=== PATIENT | female | born 1960 | race Caucasian/White ===

== ENCOUNTER → 2019-02-13 08:34 | Outpatient (CLI) | payer OTHER, SELFPAY ==
[2019-02-17 20:23] LABS: HPV HC, High Risk Negative (Negative)
== END ==
PROVIDERS: Family Provider Family Medicine; PCP Family Medicine; Visit Provider Family Medicine
DX: Z01.419 Encounter for gynecological examination (general) (routine) without abnormal findings (principal); E11.9 Type 2 diabetes mellitus without complications; E03.9 Hypothyroidism, unspecified; E78.5 Hyperlipidemia, unspecified; E11.29 Type 2 diabetes mellitus with other diabetic kidney complication; R80.9 Proteinuria, unspecified; Z12.4 Encounter for screening for malignant neoplasm of cervix
CPT/HCPCS: 36415; 87624; 88175; G0145

== ENCOUNTER → 2022-03-08 | Outpatient (CLI) | payer OTHER, SELFPAY ==
[2022-03-15 13:07] LABS: Age Gdln ACOG Testing 30-65 (.)
[2022-03-16 14:56] LABS: HPV APTIMA, High Risk Negative (Negative); HPV Reflexed? YES, CHARGE PATIENT
== END | disposition home or self-care (01) ==
LOC: LABSPEC 09:41
PROVIDERS: PCP Family Medicine; Visit Provider Family Medicine
DX: Z12.4 Encounter for screening for malignant neoplasm of cervix (principal)
CPT/HCPCS: 87624; 88175; G0145

== ENCOUNTER → 2025-03-23 | Outpatient (CLI) | payer BC, SELFPAY ==
--- OUTSIDE RECORDS SUMMARY | 2025-03-23 18:48 | XMS RPT_ITS | CCD ---
Author Organization [facility] Care Team Providers Care Roustabout Crew Pusher Name Role Phone Daphne, Aster L Unavailable Unavailable Daphne, Aster L Unavailable Unavailable Daphne, Aster L Unavailable Unavailable Daphne, Aster L Unavailable Unavailable Daphne, Aster L Unavailable Unavailable Daphne, Aster L Unavailable Unavailable Daphne, Aster L Unavailable Unavailable Ayesha Thomas Attending Unavailable Ayesha Thomas Primary Care Unavailable Martha, Dr. Ayesha Casas Primary Care Tran Thomas, Dr. Ayesha Casas Attending Tran Thomas, Dr. Ayesha Casas Referring Ayesha Lopez MD Primary Care Provider Ayesha Thomas MD Unavailable [phone] AYESHA THOMAS Referring AYESHA Falcon Primary Care SHERI Snowden Attending Unavailable SHERI IRVING Referring Unavailable AYESHA THOMAS Primary Care SHERI Snowden Attending Unavailable AYESHA THOMAS Primary Care Ayesha Falcon MD Unavailable Allergies Allergy Classification Reported Allergen(s) Allergy Type Date of Onset Reaction(s) Facility (1 source) No Known Allergies; Translations: [No Known Allergies] Propensity to adverse reactions to drug (disorder) [facility] Repository (1 source) No Known Medication Allergies; Translations: [No Known Medication Allergies] Propensity to adverse reactions to drug (disorder) [facility] Repository Medications Current Medications Medication Drug Class(es) Dates Sig (Normalized) Sig (Original) levothyroxine sodium 0.112 mg oral tablet (3 sources) l-Thyroxine take 1 tablet by mouth once daily levothyroxine (Synthroid, Levoxyl) 112 mcg tablet Take 1 tablet (112 mcg) by mouth once daily. Active lisinopril 5 mg oral tablet (3 sources) Angiotensin Converting Enzyme Inhibitor take 1 tablet by mouth once daily lisinopril 5 mg tablet Take 1 tablet (5 mg) by mouth once daily. Active 24 hr metFORMIN hydrochloride 500 mg extended release oral tablet (3 sources) Biguanide Start: 03-30-2024 take 1 tablet by mouth every twenty-four hours in the morning metFORMIN XR 500 mg 24 hr tablet Take 1 tablet (500 mg) by mouth early in the morning.. 03/30/2024 Active omega-3 fatty acids-fish oil (Fish OiL) 340-1,000 mg capsule (3 sources) take 3-340 capsules by mouth once daily omega-3 fatty acids-fish oil (Fish OiL) 340-1,000 mg capsule Take 1,000 capsules by mouth once daily. Active omeprazole 20 mg delayed release oral capsule (3 sources) Proton Pump Inhibitor Start: 04-11-2024 take 2 capsules by mouth once daily before mealtime omeprazole (PriLOSEC) [address] capsule Take 2 capsules (40 mg) by mouth once daily in the morning. Take before meals. 04/11/2024 Active sertraline 25 mg oral tablet (3 sources) Serotonin Reuptake Inhibitor take 1 tablet by mouth once daily sertraline (Zoloft) 25 mg tablet Take 1 tablet (25 mg) by mouth once daily. Active simvastatin 20 mg oral tablet (3 sources) HMG-CoA Reductase Inhibitor take 1 tablet by mouth once daily simvastatin (Zocor) 20 mg tablet Take 1 tablet (20 mg) by mouth once daily. Active Completed/Discontinued Medications Medication Drug Class(es) Dates Sig (Normalized) Sig (Original) glucagon (rdna) 1 mg injection (2 sources) Antihypoglycemic Agent Start: 05-21-2024 End: 05-21-2024 As needed, Starting on Sat05/21/24 at 0755, Intraprocedure Problems Problem Classification Problem Date Documented Date Episodic/Chronic Diabetes mellitus without complication (2 sources) Type 2 diabetes mellitus; Translations: [Type 2 diabetes mellitus without complications] Onset: 05-21-2024 05-21-2024 Chronic Esophageal disorders (2 sources) Gastroesophageal reflux disease; Translations: [Gastro-esophageal reflux disease without esophagitis] Onset: 05-21-2024 05-21-2024 Chronic Other nutritional; endocrine; and metabolic disorders (2 sources) Obesity; Translations: [Obesity, unspecified] Onset: 05-21-2024 05-21-2024 Chronic Other screening for suspected conditions (not mental disorders or infectious disease) (16 sources) Encounter for screening for malignant neoplasm of cervix; Translations: [Encounter for other screening for malignant neoplasm of breast] Onset: 03-15-2022 Episodic Residual codes; unclassified (2 sources) Obstructive sleep apnea syndrome; Translations: [Obstructive sleep apnea (adult) (pediatric)] Onset: 05-21-2024 05-21-2024 Chronic Unclassified (4 sources) Patient encounter status 04-22-2024 Results Test Name Value Interpretation Reference Range Facility COLONOSCOPYon 05-21-2024 Colonoscopy Table formatting fro m the original result was not included. Impression Scattered diverticulosis of mild severity in the distal sigmoid colon Normal. Findings Few small, scattered diverticula of mild severity with no inflammation containing no content in the distal sigmoid colon All observed locations appeared normal. Patient had 2 external skin tags/fibroepithelial polyps. Recommendation Repeat screening colonoscopy in 10 years, due: 05/19/2034 Indication Colon cancer screening Staff Staff Role Sheri Irving MD Proceduralist Medications See Anesthesia Record. Preprocedure A history and physical has been performed, and patient medication allergies have been reviewed. The patient's tolerance of previous anesthesia has been reviewed. The risks and benefits of the procedure and the sedation options and risks were discussed with the patient. All questions were answered and informed consent obtained. Details of the Procedure The patient underwent monitored anesthesia care, which was administered by an anesthesia professional. The patient's blood pressure, ECG, ETCO2, heart rate, level of consciousness, oxygen and respirations were monitored throughout the procedure. A digital rectal exam was not performed. A perianal exam was performed. The scope was introduced through the anus and advanced to the cecum. Retroflexion was performed in the rectum. The quality of bowel preparation was evaluated using the [place] Bowel Preparation Scale with scores of: right colon = 3, transverse colon = 3, left colon = 3. The total BBPS score was 9. The patient experienced no blood loss. The procedure was not difficult. The patient tolerated the procedure well. There were no apparent adverse events. Events Procedure Events Event Event Time ENDO SCOPE IN TIME 05/21/2024 7:52 AM ENDO CECUM REACHED 05/21/2024 8:02 AM ENDO SCOPE OUT TIME 05/21/2024 8:06 AM Specimens No specimens collected Procedure Location [facility] [place] [address] [place] [id number] Referring Provider Sheri Irving MD Procedure Provider MD [facility]ri [facility] Comment on above: Order Comment: Colonoscopy studyon 05-21-19 25 Table formatting fro m the original result was not included. Impression Scattered diverticulosis of mild severity in the distal sigmoid colon Normal. Findings Few small, scattered diverticula of mild severity with no inflammation containing no content in the distal sigmoid colon All observed locations appeared normal. Patient had 2 external skin tags/fibroepithelial polyps. Recommendation Repeat screening colonoscopy in 10 years, due: 05/19/2034 Indication Colon cancer screening Staff Staff Role Sheri Irving MD Proceduralist Medications See Anesthesia Record. Preprocedure A history and physical has been performed, and patient medication allergies have been reviewed. The patient's tolerance of previous anesthesia has been reviewed. The risks and benefits of the procedure and the sedation options and risks were discussed with the patient. All questions were answered and informed consent obtained. Details of the Procedure The patient underwent monitored anesthesia care, which was administered by an anesthesia professional. The patient's blood pressure, ECG, ETCO2, heart rate, level of consciousness, oxygen and respirations were monitored throughout the procedure. A digital rectal exam was not performed. A perianal exam was performed. The scope was introduced through the anus and advanced to the cecum. Retroflexion was performed in the rectum. The quality of bowel preparation was evaluated using the [place] Bowel Preparation Scale with scores of: right colon = 3, transverse colon = 3, left colon = 3. The total BBPS score was 9. The patient experienced no blood loss. The procedure was not difficult. The patient tolerated the procedure well. There were no apparent adverse events. Events Procedure Events Event Event Time ENDO SCOPE IN TIME 05/21/2024 7:52 AM ENDO CECUM REACHED 05/21/2024 8:02 AM ENDO SCOPE OUT TIME 05/21/2024 8:06 AM Specimens No specimens collected Procedure Location [facility] [place] [address] [facility] [id number] Referring Provider Sheri Irving MD Procedure Provider MD Sheri Desir [facility] Work Phone: [facility] Work Phone: Radiology Study observation (narrative) [facility] Work Phone: Glucose Test strip manual (B ld) [Mass/Vol]on 05-21-2024 Glucose [Mass/Vol] 165 mg/dL High 74 - 99 mg/dL [facility] Interpretation and review of laboratory results Abnormal [facility] Glucose [Mass/Vol] 165 mg/dL High 74-99 [facility] Comment on above: Performed By: #### 2 [id number] #### MCCORMICK JARRETT ([id number]) [facility] ([facility]) [address] [place] [address] BI MAMMO BILATERAL SCREENING TOMOSYNTHESISon 04-22-2024 BI MAMMO BILATERAL SCREENING TOMOSYNTHESIS Interpreted By: Vijay Brandt, STUDY: BI MAMMO BILATERAL SCREENING TOMOSYNTHESIS; 04/22/2024 8:10 am ACCESSION NUMBER(S): [id number] ORDERING CLINICIAN: AYESHA THOMAS INDICATION: Screening. ,Z12.31 Encounter for screening mammogram for malignant neoplasm of breast COMPARISON: 04/17/2022, 04/19/2023 FINDINGS: 2D and tomosynthesis images were reviewed at 1 mm slice thickness. Density: There are scattered areas of fibroglandular density. No suspicious masses or calcifications are identified. Coarse calcifications, in the mid depth of both breasts laterally are unchanged. No architectural distortion or mass lesion. The skin thickness is normal. CAD was utilized. IMPRESSION: No mammographic evidence of malignancy. BI-RADS CATEGORY: BI-RADS Category: 2 Benign. Recommendation: Annual Screening. Recommended Date: 1 Year. Laterality: Bilateral. For any future breast imaging appointments, please call [phone] ([phone]). MACRO: None Signed by: Vijay Brandt 04/22/2024 8:24 AM Dictation workstation: [id number] [facility] DBT Breast - bilateralon No mammographic evid ence of malignancy. BI-RADS CATEGORY: BI-RADS Category: 2 Benign. Recommendation: Annual Screening. Recommended Date: 1 Year. Laterality: Bilateral. For any future breast imaging appointments, please call [phone] ([phone]). MACRO: None Signed by: Vijay Brandt 04/22/2024 8:24 AM Dictation workstation: [id number] [facility] Interpreted By: Vijay Manriquez, STUDY: BI MAMMO BILATERAL SCREENING TOMOSYNTHESIS; 04/22/2024 8:10 am ACCESSION NUMBER(S): [id number] ORDERING CLINICIAN: AYESHA THOMAS INDICATION: Screening. ,Z12.31 Encounter for screening mammogram for malignant neoplasm of breast COMPARISON: 04/17/2022, 04/19/2023 FINDINGS: 2D and tomosynthesis images were reviewed at 1 mm slice thickness. Density: There are scattered areas of fibroglandular density. No suspicious masses or calcifications are identified. Coarse calcifications, in the mid depth of both breasts laterally are unchanged. No architectural distortion or mass lesion. The skin thickness is normal. CAD was utilized. MMODAL Vijay Brandt MD - 04/22/2024 Interpreted By: Vijay Brandt, STUDY: BI MAMMO BILATERAL SCREENING TOMOSYNTHESIS; 04/22/2024 8:10 am ACCESSION NUMBER(S): [id number] ORDERING CLINICIAN: AYESHA THOMAS INDICATION: Screening. ,Z12.31 Encounter for screening mammogram for malignant neoplasm of breast COMPARISON: 04/17/2022, 04/19/2023 FINDINGS: 2D and tomosynthesis images were reviewed at 1 mm slice thickness. Density: There are scattered areas of fibroglandular density. No suspicious masses or calcifications are identified. Coarse calcifications, in the mid depth of both breasts laterally are unchanged. No architectural distortion or mass lesion. The skin thickness is normal. CAD was utilized. IMPRESSION: No mammographic evidence of malignancy. BI-RADS CATEGORY: BI-RADS Category: 2 Benign. Recommendation: Annual Screening. Recommended Date: 1 Year. Laterality: Bilateral. For any future breast imaging appointments, please call [phone]). MACRO: None Signed by: Vijay Brandt 04/22/2024 8:24 AM Dictation workstation: [id number] [facility] Work Phone: Radiology Study observation (narrative) [facility] Work Phone: DBT Breast - bilateralOrdere d By: Vijay Brandt on 04-22-2024 [facility] Work Phone: DIGITAL MAMM SCREENING W/ TO Edward 04-17-2022 DIGITAL MAMM SCREENING W/ LUZ Patient Name: JEN LARSON STUDY: DIGITAL MAMM SCREENING W/ LUZ; 04/17/2022 9:42 am ACCESSION NUMBER(S): [id number] ORDERING CLINICIAN: AYESHA THOMAS INDICATION: Screening. COMPARISON: 04/06/2021, 04/04/2020 FINDINGS: 2D and tomosynthesis images were reviewed at 1 mm slice thickness. There are areas of scattered fibroglandular tissue. No suspicious masses or calcifications are identified. CAD was utilized. IMPRESSION: No mammographic evidence of malignancy. BI-RADS CATEGORY: Category: 1 - Negative. Recommendation: 1 Year Screening. For any future breast imaging appointments, please call [phone] ([phone]). Electronically signed by: VIJAY BRANDT MD Normal [facility] PAP IG w/Reflex HPV GDLNon 1 05-16-2021 ADEQ Comment Normal . [facility] Comment on above: Order Comment: CYTOL OGY INFORMATION: - CLINICAL INFORMATION: OTHER - Non - DATE LMP/MENOPAUSE: MENOPAUSE MENOPAUSE - COLLECTION VIAL: Thin Prep Vial - CASINO CAGE MANAGER SOURCE: CERVICAL/ENDOCERVICAL - COLLECTION TECHNIQUE: BRUSH ONLY Specimen Comment: No. of containers..01 ThinPrep Vial Result Comment: Sati sfactory for evaluation. Endocervical and/or squamous metaplastic cells (endocervical component) are present. Performed By: #### L 7400.0290 #### [facility] [address] [place], [place], [id number] COMMENT Comment Normal . [facility] Comment on above: Order Comment: CYTOL OGY INFORMATION: - CLINICAL INFORMATION: OTHER - Non - DATE LMP/MENOPAUSE: MENOPAUSE MENOPAUSE - COLLECTION VIAL: Thin Prep Vial - CASINO CAGE MANAGER SOURCE: CERVICAL/ENDOCERVICAL - COLLECTION TECHNIQUE: BRUSH ONLY Specimen Comment: No. of containers..01 ThinPrep Vial Result Comment: This liquid based ThinPrep(R) pap test was screened with the use of an image guided system. Performed By: #### L 7400.0290 #### [facility] [address] [place], [place], [id number] DIAG Comment Normal . [facility] Comment on above: Order Comment: CYTOL OGY INFORMATION: - CLINICAL INFORMATION: OTHER - Non - DATE LMP/MENOPAUSE: MENOPAUSE MENOPAUSE - COLLECTION VIAL: Thin Prep Vial - CASINO CAGE MANAGER SOURCE: CERVICAL/ENDOCERVICAL - COLLECTION TECHNIQUE: BRUSH ONLY Specimen Comment: No. of containers..01 ThinPrep Vial Result Comment: NEGA TIVE FOR INTRAEPITHELIAL LESION OR MALIGNANCY. CELLULAR CHANGES ASSOCIATED WITH ATROPHY ARE PRESENT. Performed By: #### L 7400.0290 #### [facility] [address] [place], [address] HPV APTIMA, HR Negative Normal Negative [facility] Comment on above: Order Comment: CYTOL OGY INFORMATION: - CLINICAL INFORMATION: OTHER - Non - DATE LMP/MENOPAUSE: MENOPAUSE MENOPAUSE - COLLECTION VIAL: Thin Prep Vial - CASINO CAGE MANAGER SOURCE: CERVICAL/ENDOCERVICAL - COLLECTION TECHNIQUE: BRUSH ONLY Specimen Comment: No. of containers..01 ThinPrep Vial Result Comment: This nucleic acid amplification test detects fourteen high- risk HPV types (16,18,31,33,35,39,45,51,52,56,58,59,66,68) without differentiation. Performed By: #### L 7400.0290 #### [facility] [address] [place], [place], [id number] PAPSMR Comment Normal . [facility] Comment on above: Order Comment: CYTOL OGY INFORMATION: - CLINICAL INFORMATION: OTHER - Non - DATE LMP/MENOPAUSE: MENOPAUSE MENOPAUSE - COLLECTION VIAL: Thin Prep Vial - CASINO CAGE MANAGER SOURCE: CERVICAL/ENDOCERVICAL - COLLECTION TECHNIQUE: BRUSH ONLY Specimen Comment: No. of containers..01 ThinPrep Vial Result Comment: The Pap smear is a screening test designed to aid in the detection of premalignant and malignant conditions of the uterine cervix. It is not a diagnostic procedure and should not be used as the sole means of detecting cervical cancer. Both false-positive and false-negative reports do occur. Performed By: #### L [id number] #### [facility] [address] [place], [place], [phone] PERFORM Comment Normal . [facility] Comment on above: Order Comment: CYTOL OGY INFORMATION: - CLINICAL INFORMATION: OTHER - Non - DATE LMP/MENOPAUSE: MENOPAUSE MENOPAUSE - COLLECTION VIAL: Thin Prep Vial - CASINO CAGE MANAGER SOURCE: CERVICAL/ENDOCERVICAL - COLLECTION TECHNIQUE: BRUSH ONLY Specimen Comment: No. of containers..01 ThinPrep Vial Result Comment: Efrain Ruiz Pediatric Assistant (ASCP) Performed By: #### L [id number] #### [facility] [address] [place], [place], [id number] PAP IG w/Reflex HPV GDLNon 1 05-15-2021 Age Gdln ACOG T 30-65 Normal . [facility] Comment on above: Order Comment: CYTOL OGY INFORMATION: - CLINICAL INFORMATION: OTHER - Non - DATE LMP/MENOPAUSE: MENOPAUSE MENOPAUSE - COLLECTION VIAL: Thin Prep Vial - CASINO CAGE MANAGER SOURCE: CERVICAL/ENDOCERVICAL - COLLECTION TECHNIQUE: BRUSH ONLY Specimen Comment: No. of containers..01 ThinPrep Vial Performed By: #### L [id number] #### [facility] [address] [place], [place], [phone] COMM . Normal . [facility] Comment on above: Order Comment: CYTOL OGY INFORMATION: - CLINICAL INFORMATION: OTHER - Non - DATE LMP/MENOPAUSE: MENOPAUSE MENOPAUSE - COLLECTION VIAL: Thin Prep Vial - CASINO CAGE MANAGER SOURCE: CERVICAL/ENDOCERVICAL - COLLECTION TECHNIQUE: BRUSH ONLY Specimen Comment: No. of containers..01 ThinPrep Vial Performed By: #### L [id number] #### [facility] [address] [place], [address] Pathology ([facility])on 01-17-2017 Pathology ([facility]) FINAL GYNECOLOGIC CY TOLOGY [id number] ADEQUACYSatisfactory for EvaluationEndocervical component absent but acceptable due to patient age/historyGENERAL CATEGORIZATIONNegative for Intraepithelial Lesion or MalignancyCOMMENTAtrophic cellular pattern.CLINICAL HISTORYComment: No LMP provided.SPECIMEN(A) SCREENING CERVICAL/ENDOCERVICAL LIQUID-BASED PAPPerformed at [facility], [address] [place] [address] [id number] by: Signed Out by: ERASMO SUAREZ Pediatric Assistant Reported: 01/23/2017 Normal [facility] Healthcare Comment on above: Performed By: #### G YN ####[facility] [address] [place] [address] Vital Signs Date Time Vital Sign Value Performing Clinician Facility 05-21-2024 09:00-0500 Diastolic blood pressure 70 mm[Hg] [address] 05-21-2024 09:00-0500 Heart rate 63 /min [address] 05-21-2024 09:00-0500 Respiratory rate 18 /min [address] 05-21-2024 09:00-0500 SaO2% (BldA) [Mass fraction] 99 % [address] 05-21-2024 09:00-0500 Systolic blood pressure 114 mm[Hg] [address] 05-21-2024 08:15-0500 Body temperature 97.59 [degF] [address] 05-21-2024 06:11-0500 Body height 157.[address] 05-21-2024 06:11-0500 Body mass index (BMI) [Ratio] 33.67 kg/m2 [address] 05-21-2024 06:11-0500 Body weight 83.[address] 04-24-2024 09:13-0500 Body height 157.5 cm Sheri Irving MD Work Phone: [facility] 04-24-2024 09:13-0500 Body mass index (BMI) [Ratio] 34.35 kg/m2 Sheri Irving MD Work Phone: [facility] 04-24-2024 09:13-0500 Body weight 85.19 kg Sheri Irving MD Work Phone: [facility] 04-24-2024 09:13-0500 Diastolic blood pressure 68 mm[Hg] Sheri Irving MD Work Phone: [facility] 04-24-2024 09:13-0500 Heart rate 71 /min Sheri Irving MD Work Phone: [facility] 04-24-2024 09:13-0500 Systolic blood pressure 110 mm[Hg] Sheri Irving MD Work Phone: [facility] 04-22-2024 08:13-0500 Body height 157.5 cm [facility] 04-22-2024 08:13-0500 Body mass index (BMI) [Ratio] 33.83 kg/m2 [facility] 04-22-2024 08:13-0500 Body weight 83.9 kg [facility] Encounters Encounter Date Encounter Type Care Provider Facility Start: 05-21-2024 End: 05-21-2024 Subsequent hospital visit by physician Sheri Irving MD Work Phone: [facility] [place] Comment on above: Colon cancer screeni ng Start: 05-21-2024 End: 05-21-2024 ambulatory [facility] Start: 04-24-2024 End: 04-24-2024 ambulatory [facility] Start: 04-24-2024 End: 04-24-2024 Office outpatient new 45 minutes Sheri Irving MD Work Phone: [facility] Comment on above: Colon cancer screeni ng (Primary Dx) Start: 04-22-2024 End: 04-22-2024 Subsequent hospital visit by physician Hema [id number] [facility] Comment on above: Encounter for screen ing mammogram for malignant neoplasm of breast Start: 04-22-2024 End: 04-22-2024 ambulatory AYESHA THOMAS [facility] Start: 04-17-[address] Ayesha Thomas Facility:[id number] Start: 03-08-2022 End: 03-08-2022 ambulatory Ayesha Thomas Facility:[facility] Start: 01-24-2018 End: 01-24-2018 Patient encounter Aster Serna Facility:[facility] Start: 07-24-2017 End: 07-25-2017 Patient encounter Aster Serna Facility:[facility] Start: 07-12-2017 End: 07-12-2017 Patient encounter Aster Serna Facility:[facility] Procedures Date Procedure Procedure Detail Performing Clinician Start: 05-21-2024 Colonoscopy flx dx w /collj spec when pfrmd Sheri Irving MD Work Phone: Start: 05-21-2024 Glucose quantitative blood xcpt reagent strip Yobany Barrientos MD PhD Work Phone: Start: 05-21-2024 PULSE OXIMETRY, SPOT Ma malik Irving MD Work Phone: Start: 05-21-2024 Colonoscopy Hema 04 Start: 04-22-2024 End: 04-22-2024 Screening digital breast tomosynthesis Ayesha Thomas MD Work Phone: Start: 03-08-2022 Microscopic observat ion [Identifier] in Cervix by Cyto stain [facility] Mammo Plan of Treatment Date Care Activity Detail Author Start: 2036 RSV High Risk: (Elde rly (60+) or Population) (1 - 1-dose 75+ series) RSV High Risk: (Elderly (60+) or Population) (1 - 1-dose 75+ series) [facility] Start: 05-19-2034 Screening for malign ant neoplasm of colon [facility] Start: 10-29-2025 DTaP/Tdap/Td Vaccine s (3 - Td or Tdap) DTaP/Tdap/Td Vaccines (3 - Td or Tdap) [facility] Start: 04-22-2025 Screening for malign ant neoplasm of breast Mammogram [facility] Start: 03-20-2025 Yearly Adult Physical Yearly Adult P hysical [facility] Start: 03-08-2025 Screening for malign ant neoplasm of cervix [facility] Start: 01-04-2025 COVID-19 Vaccine ( season) COVID-19 Vaccine ( season) [facility] Start: 01-04-2025 Influenza vaccination Influenza Vacc ine (#1) [facility] Start: 04-24-2024 End: 04-24-2025 Colonoscopy study Colonoscopy Screening; Average Risk Patient Endoscopy Routine Colon cancer screening Expected: 04/24/2024, Expires: 04/24/2025 [facility] Service Area Work Phone: Comment on above: Expected: 04/24/2024 , Expires: 04/24/2025 Start: 04-24-2024 End: 04-24-2024 Patient encounter procedure 04/24/2024 9:00 AM EST Office Visit [facility] [address] [place] [address] Sheri Irving MD [address] [place] [address] [facility] Start: 01-05-2024 COVID-19 Vaccine ( season) COVID-19 Vaccine ( season) [facility] Start: 01-05-2024 Influenza vaccination Influenza Vacc ine (#1) [facility] Start: 2011 Pneumococcal vaccination Pneumococcal Vaccine (1 of 1 - PCV) [facility] Start: 1982 Screening for malign ant neoplasm of cervix HPV/Cotest [facility] Start: 1980 Pneumococcal vaccination Pneumococcal Vaccine (1 of 2 - PCV) [facility] Start: 1979 Hepatitis C screening Hepatitis C Sc reening [facility] Start: 1971 Glaucoma screening Diabetes: R etinopathy Screening [facility] Start: 1962 MMR Vaccines (1 of 1 - Standard series) MMR Vaccines (1 of 1 - Standard series) [facility] Start: 1961 Hemoglobin A1c measurement Diabetes: Hemoglobin A1C [facility] Start: 1961 HIV screening HIV Screening [facility] Start: 1961 Lipid panel Lipid Panel [facility] Start: 1961 Screening for malign ant neoplasm of colon [facility] Start: 1961 Thyroid stimulating hormone measurement TSH Level [facility] Start: 1961 Urine screening for protein Diabetes: Urine Protein Screening [facility] Start: 1961 Yearly Adult Physical Yearly Adult P hysical [facility] End: 05-21-2024 Moderate Sedation Moderate Sedation Procedures Routine Once for 1 Occurrences starting 05/21/2024 until 05/21/2024 [facility] Service Area Work Phone: Comment on above: Once for 1 Occurrenc es starting 05/21/2024 until 05/21/2024 End: 05-21-2024 Pulse oximetry, continuous Pulse oximetry, continuous Respiratory Care Routine Continuous until discontinued starting 05/21/2024 [facility] Work Phone: Comment on above: Continuous until dis continued starting 05/21/2024 Immunizations Immunization Date Immunization Notes Care Provider Sukhjinder mcneil 01-13-2023 influenza virus vacc ine, unspecified formulation [facility] Work Phone: Payers Date Payer Category Payer Managed Care (Private) [facility] [id number] 2022 Private Health Insurance [id number] 2022 Self-pay 2017 Private Health Insurance 1960 Unknown [id number] 1960 Unknown [id number] 1960 Unknown [id number] 1960 Unknown [id number] Unknown [id number] Social History Date Type Detail Facility [facility] unknown [facility] Work Phone: Start: 1960 Sex assigned at Not on file [facility] Work Phone: Start: 05-21-2024 Gender identity Not on file [facility] Work Phone: Start: 04-12-2024 End: 05-21-2024 Exposure to SARS-CoV-2 (event) Not sure [facility] Start: 04-24-2024 [facility] Never smoked tobacco [facility] Work Phone: Start: 04-24-2024 Tobacco use and exposure Smokeless tobacco non-user [facility] Work Phone: Start: 04-24-2024 End: 05-21-2024 Alcoholic beverage intake Current drinker of alcohol (finding) [facility] Work Phone: Start: 04-24-2024 Alcohol Comment rarely drinks a glass of wine [facility] Work Phone: Start: 05-21-2024 History of Social function [facility] Work Phone: Start: 03-30-2022 Sex Female [facility] Functional Status Date Assessment Result Facility 05-21-2024 [facility] Work Phone: 05-21-2024 [place] - 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 - 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 [C-SSRS] [facility] Work Phone: 05-21-2024 Functional status [facility] Work Phone: [facility] Mental Status Date Assessment Result Facility 05-21-2024 Cognitive function finding Negat chapito 05/21/2024 9:00 AM EST Jenna Dolan RN Negative [facility] Work Phone: Clinical Notes 04-24-2024 to 05-21-2024 Discharge InstructionsDischarge Adrien Irving MD - 05/21/2024 7:30 AM Bisi Irving MD - 05/21/2024 7:30 AM Bisi Irving MD - 05/21/2024 7:30 AM EST Note Date & Type Note Facility 05-21-2024 Hospital Discharge instructions Jenna Dolan RN - 05/21/2024 8:26 AM EST Patient Instructions after a Colonoscopy The anesthetics, sedatives or narcotics which were given to you today will be acting in your body for the next 24 hours, so you might feel a little sleepy or groggy. This feeling should slowly wear off. Carefully read and follow the instructions. You received sedation today: - Do not drive or operate any machinery or power tools of any kind. - No alcoholic beverages today, not even beer or wine. - Do not make any important decisions or sign any legal documents. - No over the counter medications that contain alcohol or that may cause drowsiness. - Do not make any important decisions or sign any legal documents. - Make sure you have someone with you for first 24 hours. While it is common to experience mild to moderate abdominal distention, gas, or belching after your procedure, if any of these symptoms occur following discharge from the GI Lab or within one week of having your procedure, call the [facility] to be advised whether a visit to your nearest Urgent Care or Emergency Department is indicated. Take this paper with you if you go. - If you develop an allergic reaction to the medications that were given during your procedure such as difficulty breathing, rash, hives, severe nausea, vomiting or lightheadedness. - If you experience chest pain, shortness of breath, severe abdominal pain, fevers and chills. -If you develop signs and symptoms of bleeding such as blood in your spit, if your stools turn black, tarry, or bloody - If you have not urinated within 8 hours following your procedure. - If your IV site becomes painful, red, inflamed, or looks infected. If you received a biopsy/polypectomy/sphincteroto my the following instructions apply below: __ Do not use Aspirin containing products, non-steroidal medications or anti-coagulants for one week following your procedure. (Examples of these types of medications are: Advil, Arthrotec, Aleve, Coumadin, Ecotrin, Heparin, Ibuprofen, Indocin, Motrin, Naprosyn, Nuprin, Plavix, Vioxx, and Voltarin, or their generic forms. This list is not all-inclusive. Check with your physician or pharmacist before resuming medications.) __ Eat a soft diet today. Avoid foods that are poorly digested for the next 24 hours. These foods would include: nuts, beans, lettuce, red meats, and fried foods. Start with liquids and advance your diet as tolerated, gradually work up to eating solids. __ Do not have a Barium Study or Enema for one week. Your physician recommends the additional following instructions: -You have a contact number available for emergencies. The signs and symptoms of potential delayed complications were discussed with you. You may return to normal activities tomorrow. -Resume your previous diet. -Continue your present medications. -We are waiting for your pathology results. -Your physician has recommended a repeat colonoscopy (date to be determined after pending pathology results are reviewed) for surveillance based on pathology results. -The findings and recommendations have been discussed with you. -The findings and recommendations were discussed with your family. - Please see Medication Reconciliation Form for new medication/medications prescribed. If you experience any problems or have any questions following discharge from the GI Lab, please call: Nurse Signature Date Patient/Responsible Libertarian Signature Date documented in this encounter [facility] Work Phone: 05-21-2024 Hospital Discharge instructions Jenna Dolan RN - 05/21/2024 8:26 AM EST Patient Instructions after a Colonoscopy The anesthetics, sedatives or narcotics which were given to you today will be acting in your body for the next 24 hours, so you might feel a little sleepy or groggy. This feeling should slowly wear off. Carefully read and follow the instructions. You received sedation today: - Do not drive or operate any machinery or power tools of any kind. - No alcoholic beverages today, not even beer or wine. - Do not make any important decisions or sign any legal documents. - No over the counter medications that contain alcohol or that may cause drowsiness. - Do not make any important decisions or sign any legal documents. - Make sure you have someone with you for first 24 hours. While it is common to experience mild to moderate abdominal distention, gas, or belching after your procedure, if any of these symptoms occur following discharge from the GI Lab or within one week of having your procedure, call the [facility] to be advised whether a visit to your nearest Urgent Care or Emergency Department is indicated. Take this paper with you if you go. - If you develop an allergic reaction to the medications that were given during your procedure such as difficulty breathing, rash, hives, severe nausea, vomiting or lightheadedness. - If you experience chest pain, shortness of breath, severe abdominal pain, fevers and chills. -If you develop signs and symptoms of bleeding such as blood in your spit, if your stools turn black, tarry, or bloody - If you have not urinated within 8 hours following your procedure. - If your IV site becomes painful, red, inflamed, or looks infected. If you received a biopsy/polypectomy/sphincteroto my the following instructions apply below: __ Do not use Aspirin containing products, non-steroidal medications or anti-coagulants for one week following your procedure. (Examples of these types of medications are: Advil, Arthrotec, Aleve, Coumadin, Ecotrin, Heparin, Ibuprofen, Indocin, Motrin, Naprosyn, Nuprin, Plavix, Vioxx, and Voltarin, or their generic forms. This list is not all-inclusive. Check with your physician or pharmacist before resuming medications.) __ Eat a soft diet today. Avoid foods that are poorly digested for the next 24 hours. These foods would include: nuts, beans, lettuce, red meats, and fried foods. Start with liquids and advance your diet as tolerated, gradually work up to eating solids. __ Do not have a Barium Study or Enema for one week. Your physician recommends the additional following instructions: -You have a contact number available for emergencies. The signs and symptoms of potential delayed complications were discussed with you. You may return to normal activities tomorrow. -Resume your previous diet. -Continue your present medications. -We are waiting for your pathology results. -Your physician has recommended a repeat colonoscopy (date to be determined after pending pathology results are reviewed) for surveillance based on pathology results. -The findings and recommendations have been discussed with you. -The findings and recommendations were discussed with your family. - Please see Medication Reconciliation Form for new medication/medications prescribed. If you experience any problems or have any questions following discharge from the GI Lab, please call: Nurse Signature Date Patient/Responsible Libertarian Signature Date documented in this encounter [facility] Work Phone: 05-21-2024 Attending History and physical note H&P reviewed. The patient was examined and there are no changes to the H&P. Source Note - Sheri Irving MD - 04/24/2024 9:00 AM EST General Surgery Consultation Patient: Jen Larson : 1960 Date of Consultation: 04/24/24 Primary Care Provider: Ayesha Thomas MD Chief Complaint: Screening colonoscopy History of Present Illness: Jen Larson is a 63 y.o. old female seen to schedule screening colonoscopy. Her last colonoscopy was in 2013. At that time she said there was a family history but her grandmother had had a colostomy bag and she does not remember anyone saying that there was cancer. We discussed the fact that most likely was diverticular disease. The patient is having no symptoms. She does wear CPAP so she will need to be done in the OR. Medical History: She has diabetes thyroid disease and anxiety Surgical History: Past Surgical History: Procedure Laterality Date BREAST BIOPSY Left 2013 NEGATIVE Home Medications: Prior to Admission medications Medication Sig Start Date End Date Taking? Authorizing Provider levothyroxine (Synthroid, Levoxyl) 112 mcg tablet Take 1 tablet (112 mcg) by mouth once daily. Yes Historical Provider, lisinopril 5 mg tablet Take 1 tablet (5 mg) by mouth once daily. Yes Historical Provider, metFORMIN XR 500 mg 24 hr tablet Take 1 tablet (500 mg) by mouth early in the morning.. 03/30/24 Yes Historical Provider, omega-3 fatty acids-fish oil (Fish OiL) 340-1,000 mg capsule Take 1,000 capsules by mouth once daily. Yes Historical Provider, omeprazole (PriLOSEC) [address] capsule Take 2 capsules (40 mg) by mouth once daily in the morning. Take before meals. 04/11/24 Yes Historical Provider, sertraline (Zoloft) 25 mg tablet Take 1 tablet (25 mg) by mouth once daily. Yes Historical Provider, simvastatin (Zocor) 20 mg tablet Take 1 tablet (20 mg) by mouth once daily. Yes Historical Provider, Allergies: No Known Allergies has No Known Allergies. Family History: Family History Problem Relation Name Age of Onset Breast cancer Mother Social History: Social History Socioeconomic History Marital status: ROS: Constitutional: no fever, sweats, and chills Cardiovascular: No chest pain Respiratory: No cough or shortness of breath Gastrointestinal: Denies any issues Genitourinary: no dysuria Musculoskeletal: no weakness or swelling Integumentary: no rashes Neurological: no confusion Endocrine: no heat or cold intolerance Heme/Lymph: no easy bruising or bleeding Objective: BP 110/68 Pulse 71 Ht 1.575 m (5' 2) Wt 85.2 kg (187 lb 12.8 oz) BMI 34.35 kg/m Physical Exam: Constitutional: No acute distress, conversant, pleasant Neurologic: alert and oriented Psych: appropriate affect Ears, Nose, Mouth and Throat: mucus membranes moist Pulmonary: No labored breathing Cardiovascular: Regular rate and rhythm Abdomen: soft, non-distended, non-tender Musculoskeletal: Moves all extremities, no edema Skin: warm and dry Assessment and Plan: Jen Larson is a 63 y.o. old female with 10-year screening colonoscopy. We discussed the indication for colonoscopy as well as the differential diagnosis including anything from no findings all the way up to a colon cancer. We reviewed the prep as well as the risks and potential complications including but not limited to bleeding, infection, reaction to the anesthetic, stroke GA and/or . We discussed the risk of perforation or need for completion barium studies. All questions were answered and she asked us to proceed. Sheri Irving MD 04/24/2024 [facility] Work Phone: 05-21-2024 History and physical note H&P reviewed. The patient was examined and there are no changes to the H&P. Source Note - Sheri Irving MD - 04/24/2024 9:00 AM EST General Surgery Consultation Patient: Jen Larson : 1960 Date of Consultation: 04/24/24 Primary Care Provider: Ayesha Thomas MD Chief Complaint: Screening colonoscopy History of Present Illness: Jen Larson is a 63 y.o. old female seen to schedule screening colonoscopy. Her last colonoscopy was in 2013. At that time she said there was a family history but her grandmother had had a colostomy bag and she does not remember anyone saying that there was cancer. We discussed the fact that most likely was diverticular disease. The patient is having no symptoms. She does wear CPAP so she will need to be done in the OR. Medical History: She has diabetes thyroid disease and anxiety Surgical History: Past Surgical History: Procedure Laterality Date BREAST BIOPSY Left 2013 NEGATIVE Home Medications: Prior to Admission medications Medication Sig Start Date End Date Taking? Authorizing Provider levothyroxine (Synthroid, Levoxyl) 112 mcg tablet Take 1 tablet (112 mcg) by mouth once daily. Yes Historical Provider, lisinopril 5 mg tablet Take 1 tablet (5 mg) by mouth once daily. Yes Historical Provider, metFORMIN XR 500 mg 24 hr tablet Take 1 tablet (500 mg) by mouth early in the morning.. 03/30/24 Yes Historical Provider, omega-3 fatty acids-fish oil (Fish OiL) 340-1,000 mg capsule Take 1,000 capsules by mouth once daily. Yes Historical Provider, omeprazole (PriLOSEC) [address] capsule Take 2 capsules (40 mg) by mouth once daily in the morning. Take before meals. 04/11/24 Yes Historical Provider, sertraline (Zoloft) 25 mg tablet Take 1 tablet (25 mg) by mouth once daily. Yes Historical Provider, simvastatin (Zocor) 20 mg tablet Take 1 tablet (20 mg) by mouth once daily. Yes Historical Provider, Allergies: No Known Allergies has No Known Allergies. Family History: Family History Problem Relation Name Age of Onset Breast cancer Mother Social History: Social History Socioeconomic History Marital status: ROS: Constitutional: no fever, sweats, and chills Cardiovascular: No chest pain Respiratory: No cough or shortness of breath Gastrointestinal: Denies any issues Genitourinary: no dysuria Musculoskeletal: no weakness or swelling Integumentary: no rashes Neurological: no confusion Endocrine: no heat or cold intolerance Heme/Lymph: no easy bruising or bleeding Objective: BP 110/68 Pulse 71 Ht 1.575 m (5' 2) Wt 85.2 kg (187 lb 12.8 oz) BMI 34.35 kg/m Physical Exam: Constitutional: No acute distress, conversant, pleasant Neurologic: alert and oriented Psych: appropriate affect Ears, Nose, Mouth and Throat: mucus membranes moist Pulmonary: No labored breathing Cardiovascular: Regular rate and rhythm Abdomen: soft, non-distended, non-tender Musculoskeletal: Moves all extremities, no edema Skin: warm and dry Assessment and Plan: Jen Larson is a 63 y.o. old female with 10-year screening colonoscopy. We discussed the indication for colonoscopy as well as the differential diagnosis including anything from no findings all the way up to a colon cancer. We reviewed the prep as well as the risks and potential complications including but not limited to bleeding, infection, reaction to the anesthetic, stroke GA and/or . We discussed the risk of perforation or need for completion barium studies. All questions were answered and she asked us to proceed. Sheri Irving MD 04/24/2024 documented in this encounter [facility] Work Phone: 05-21-2024 History and physical note H&P reviewed. The patient was examined and there are no changes to the H&P. Source Note - Sheri Irving MD - 04/24/2024 9:00 AM EST General Surgery Consultation Patient: Jen Larson : 1960 Date of Consultation: 04/24/24 Primary Care Provider: Ayesha Thomas MD Chief Complaint: Screening colonoscopy History of Present Illness: Jen Larson is a 63 y.o. old female seen to schedule screening colonoscopy. Her last colonoscopy was in 2013. At that time she said there was a family history but her grandmother had had a colostomy bag and she does not remember anyone saying that there was cancer. We discussed the fact that most likely was diverticular disease. The patient is having no symptoms. She does wear CPAP so she will need to be done in the OR. Medical History: She has diabetes thyroid disease and anxiety Surgical History: Past Surgical History: Procedure Laterality Date BREAST BIOPSY Left 2013 NEGATIVE Home Medications: Prior to Admission medications Medication Sig Start Date End Date Taking? Authorizing Provider levothyroxine (Synthroid, Levoxyl) 112 mcg tablet Take 1 tablet (112 mcg) by mouth once daily. Yes Historical Provider, lisinopril 5 mg tablet Take 1 tablet (5 mg) by mouth once daily. Yes Historical Provider, metFORMIN XR 500 mg 24 hr tablet Take 1 tablet (500 mg) by mouth early in the morning.. 03/30/24 Yes Historical Provider, omega-3 fatty acids-fish oil (Fish OiL) 340-1,000 mg capsule Take 1,000 capsules by mouth once daily. Yes Historical Provider, omeprazole (PriLOSEC) [address] capsule Take 2 capsules (40 mg) by mouth once daily in the morning. Take before meals. 04/11/24 Yes Historical Provider, sertraline (Zoloft) 25 mg tablet Take 1 tablet (25 mg) by mouth once daily. Yes Historical Provider, simvastatin (Zocor) 20 mg tablet Take 1 tablet (20 mg) by mouth once daily. Yes Historical Provider, Allergies: No Known Allergies has No Known Allergies. Family History: Family History Problem Relation Name Age of Onset Breast cancer Mother Social History: Social History Socioeconomic History Marital status: ROS: Constitutional: no fever, sweats, and chills Cardiovascular: No chest pain Respiratory: No cough or shortness of breath Gastrointestinal: Denies any issues Genitourinary: no dysuria Musculoskeletal: no weakness or swelling Integumentary: no rashes Neurological: no confusion Endocrine: no heat or cold intolerance Heme/Lymph: no easy bruising or bleeding Objective: BP 110/68 Pulse 71 Ht 1.575 m (5' 2) Wt 85.2 kg (187 lb 12.8 oz) BMI 34.35 kg/m Physical Exam: Constitutional: No acute distress, conversant, pleasant Neurologic: alert and oriented Psych: appropriate affect Ears, Nose, Mouth and Throat: mucus membranes moist Pulmonary: No labored breathing Cardiovascular: Regular rate and rhythm Abdomen: soft, non-distended, non-tender Musculoskeletal: Moves all extremities, no edema Skin: warm and dry Assessment and Plan: Jen Larson is a 63 y.o. old female with 10-year screening colonoscopy. We discussed the indication for colonoscopy as well as the differential diagnosis including anything from no findings all the way up to a colon cancer. We reviewed the prep as well as the risks and potential complications including but not limited to bleeding, infection, reaction to the anesthetic, stroke GA and/or . We discussed the risk of perforation or need for completion barium studies. All questions were answered and she asked us to proceed. Sheri Irving MD 04/24/2024 documented in this encounter [facility] Work Phone: 04-24-2024 History of Present illness Narrative General Surgery Consultation Patient: Jne Larson : 1960 Date of Consultation: 04/24/24 Primary Care Provider: Ayesha Thomas MD Chief Complaint: Screening colonoscopy History of Present Illness: Jen Larson is a 63 y.o. old female seen to schedule screening colonoscopy. Her last colonoscopy was in 2013. At that time she said there was a family history but her grandmother had had a colostomy bag and she does not remember anyone saying that there was cancer. We discussed the fact that most likely was diverticular disease. The patient is having no symptoms. She does wear CPAP so she will need to be done in the OR. Medical History: She has diabetes thyroid disease and anxiety Surgical History: Past Surgical History: Procedure Laterality Date BREAST BIOPSY Left 2013 NEGATIVE Home Medications: Prior to Admission medications Medication Sig Start Date End Date Taking? Authorizing Provider levothyroxine (Synthroid, Levoxyl) 112 mcg tablet Take 1 tablet (112 mcg) by mouth once daily. Yes Historical Provider, lisinopril 5 mg tablet Take 1 tablet (5 mg) by mouth once daily. Yes Historical Provider, metFORMIN XR 500 mg 24 hr tablet Take 1 tablet (500 mg) by mouth early in the morning.. 03/30/24 Yes Historical Provider, omega-3 fatty acids-fish oil (Fish OiL) 340-1,000 mg capsule Take 1,000 capsules by mouth once daily. Yes Historical Provider, omeprazole (PriLOSEC) [address] capsule Take 2 capsules (40 mg) by mouth once daily in the morning. Take before meals. 04/11/24 Yes Historical Provider, sertraline (Zoloft) 25 mg tablet Take 1 tablet (25 mg) by mouth once daily. Yes Historical Provider, simvastatin (Zocor) 20 mg tablet Take 1 tablet (20 mg) by mouth once daily. Yes Historical Provider, Allergies: No Known Allergies has No Known Allergies. Family History: Family History Problem Relation Name Age of Onset Breast cancer Mother Social History: Social History Socioeconomic History Marital status: ROS: Constitutional: no fever, sweats, and chills Cardiovascular: No chest pain Respiratory: No cough or shortness of breath Gastrointestinal: Denies any issues Genitourinary: no dysuria Musculoskeletal: no weakness or swelling Integumentary: no rashes Neurological: no confusion Endocrine: no heat or cold intolerance Heme/Lymph: no easy bruising or bleeding Objective: BP 110/68 Pulse 71 Ht 1.575 m (5' 2) Wt 85.2 kg (187 lb 12.8 oz) BMI 34.35 kg/m Physical Exam: Constitutional: No acute distress, conversant, pleasant Neurologic: alert and oriented Psych: appropriate affect Ears, Nose, Mouth and Throat: mucus membranes moist Pulmonary: No labored breathing Cardiovascular: Regular rate and rhythm Abdomen: soft, non-distended, non-tender Musculoskeletal: Moves all extremities, no edema Skin: warm and dry Assessment and Plan: Jen Larson is a 63 y.o. old female with 10-year screening colonoscopy. We discussed the indication for colonoscopy as well as the differential diagnosis including anything from no findings all the way up to a colon cancer. We reviewed the prep as well as the risks and potential complications including but not limited to bleeding, infection, reaction to the anesthetic, stroke GA and/or . We discussed the risk of perforation or need for completion barium studies. All questions were answered and she asked us to proceed. Sheri Irving MD 04/24/2024 documented in this encounter [facility] Work Phone: Evaluation note Diagnosis Encounter for screening mammogram for malignant neoplasm of breast documented in this encounter [facility] Work Phone: Evaluation note* Diagnosis Colon cancer screening- Primary Special screening for malignant neoplasms, colon documented in this encounter [facility] Work Phone: Evaluation note* Diagnosis Colon cancer screening Special screening for malignant neoplasms, colon documented in this encounter [facility] Work Phone: Evaluation note* Diagnosis Colon cancer screening Special screening for malignant neoplasms, colon documented in this encounter [facility] Work Phone: Reason for visit Narrative* Imaging (Routine) - Authorized Specialty Diagnoses / Procedures [facility] To Contact Radiology Diagnoses Encounter for screening mammogram for malignant neoplasm of breast Procedures BI mammo bilateral screening tomosynthesis Ayesha Thomas MD [address] [place] [address] Phone: tel: fax: Referral ID Status Reason Start Date Expiration Date Visits Requested Visits Authorized [id number] Authorized Perform Procedure 4 03/19/2025 1 1 [facility] Work Phone: reason for visit Narrative* Endoscopy (Routine) - Authorized Specialty Diagnoses / Procedures Referred By [place] t Referred To Contact Gastroenterology Diagnoses Colon cancer screening Procedures Colonoscopy Screening; Average Risk Patient MO COLONOSCOPY FLX DX W/COLLJ SPEC WHEN PFRMD MO COLON CA SCRN NOT HI RSK IND MO COLORECTAL SCRN; HI RISK IND MO COLONOSCOPY W/BIOPSY SINGLE/MULTIPLE MO COLSC FLX W/RMVL OF TUMOR POLYP LESION SNARE TQ MO COLSC FLX W/REMOVAL LESION BY HOT BX FORCEPS Sheri Irving MD [address] [address] Phone: tel: fax: Referral ID Status Reason Start Date Expiration Date V isits Requested Visits Authorized [id number] Authorized 04/24/2024 04/24/2025 1 1 [facility] Work Phone: reason for visit Narrative* Endoscopy (Routine) - Authorized Specialty Diagnoses / Procedures [facility] Referred To Contact Gastroenterology Diagnoses Colon cancer screening Procedures Colonoscopy Screening; Average Risk Patient MO COLONOSCOPY FLX DX W/COLLJ SPEC WHEN PFRMD MO COLON CA SCRN NOT HI RSK IND MO COLORECTAL SCRN; HI RISK IND MO COLONOSCOPY W/BIOPSY SINGLE/MULTIPLE MO COLSC FLX W/RMVL OF TUMOR POLYP LESION SNARE TQ MO COLSC FLX W/REMOVAL LESION BY HOT BX FORCEPS Sheri Irving MD [address] [place] [address] Phone: tel: fax: Referral ID Status Reason Start Date Expiration Date V isits Requested Visits Authorized [id number] Authorized 04/24/2024 04/24/2025 1 1 [facility] Work Phone: Summary Purpose Family History No Family History Records FoundNo Family History Records FoundNo Family History Records FoundNo Family History Records FoundNo Family History Records FoundNo Family History Records FoundNo Family History Records Found Advance Directives No Advanced Directives Records FoundNo Advanced Directives Records FoundNo Advanced Directives Records FoundNo Advanced Directives Records FoundNo Advanced Directives Records FoundNo Advanced Directives Records FoundNo Advanced Directives Records Found Additional Source Comments INFORMATION SOURCE (unrecogn ized section and content) DATE CREATED AUTHOR 10/30/2017 [facility] DATE CREATED AUTHOR AUTHOR'S ORGANIZ ATION 03/02/2018 [facility] DATE CREATED AUTHOR AUTHOR'S ORGANIZ ATION 03/17/2022 [facility] DATE CREATED AUTHOR AUTHOR'S ORGANIZ ATION 04/18/2022 [facility] DATE CREATED AUTHOR AUTHOR'S ORGANIZ ATION 05/03/2022 [facility] DATE CREATED AUTHOR AUTHOR'S ORGANIZ ATION 05/24/2024 [facility] DATE CREATED AUTHOR AUTHOR'S ORGANIZ ATION 05/25/2024 [facility] [employer] (unrecognized sec tion and content) [employer] Relationship Specialty Start Date End Date Ayesha Thomas MD [address] [place] [address] PCP - General Family Medicine 04/12/23 Ayesha Thomas MD [address] [place] [address] PCP - [employer] PCP 04/05/23 [employer] Relationship Specialty Start Date End Date Ayesha Thomas MD [address] [place] [phone] PCP - General Family Medicine 04/12/23 Ayesha Thomas MD [address] [place] [address] PCP - [employer] PCP 04/05/23 [employer] Relationship Specialty Start Date End Date Ayesha Thomas MD [address] [place] [address] PCP - General Family Medicine 04/12/23 Ayesha Thomas MD [address] [place] [address] PCP - [employer] PCP 04/05/23 [employer] Relationship Specialty Start Date End Date Ayesha Thomas MD [address] [place] [phone] PCP - General Family Medicine 04/12/23 Ayesha Thomas MD [address] [place] [phone] PCP - [employer] [facility] PCP 04/05/23 Reason for Visit (unrecogniz ed section and content) Reason Comments Consult Referred by Dr Oskar moore for colon consult. Pt has never done a Cologuard and last colonoscopy done 02-17-[address] Irving. Denies rectal bleeding, diarrhea, constipation. Denies family hx of colon cancer. Patient dx with sleep apnea and on a CPAP. FOR RECORDS PERTAINING TO PATIENTS WHO ARE OR HAVE BEEN ENROLLED IN A CHEMICAL DEPENDENCY/SUBSTANCEABUSE PROGRAM, SOME INFORMATION MAY BE OMITTED. This clinical summary was aggregated from multiple sources. Caution should be exercised in using it in the provision of clinical care. This summary normalizes information from multiple sources, and as a consequence, information in this document may materially change the coding, format and clinical context of patient data. In addition, data may be omitted in some cases. CLINICAL DECISIONS SHOULD BE BASED ON THE PRIMARY CLINICAL RECORDS. [employer] provides no warranty or guarantee of the accuracy or completeness of information in this document.
== END | disposition home or self-care (01) ==
PROVIDERS: PCP Family Medicine; Visit Provider Family Medicine
DX: Z11.3 Encounter for screening for infections with a predominantly sexual mode of transmission (principal)
CPT/HCPCS: 87491; 87591